=== PATIENT | female | born 1970 | race Caucasian/White ===

== ENCOUNTER 2023-03-06 11:41 | Day surgery (SDC) | payer OTHER, SELFPAY ==
[2023-03-06] VITALS (12 sets, daily range): BP systolic 113–166; BP diastolic 76–99; PULSE 54–88; RESP 12–23; TEMP 36.3–36.5; O2SAT 97–100; BMI 27.3
[2023-03-06 12:20] LABS: HCG Qualitative NEGATIVE (NEGATIVE)
[2023-03-06] MEDS: LACTATED RINGER'S SOLUTION 1,000 ML 50 ML IV ×2 (13:15→17:14)
--- NOTE | 2023-03-06 13:19 | ECG_ITS ---
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
[2023-03-06] MEDS: CEFAZOLIN SODIUM/DEXTROSE,ISO 2 GM/50 ML PIGGYBACK IV (15:32)
[2023-03-06] MEDS: IOHEXOL 240 MG/ML - 10 ML VIAL INJ (16:30)
--- NOTE | 2023-03-06 17:27 | P.URON_ITS ---
Urology Surgery Operative Note Operative Note Procedure Date: 03/06/23 Time Out Performed: yes Pre-op Diagnosis: 1. Left kidney stone 2. Renal colic Post-op Diagnosis: same as pre-op Procedures performed: Cystoscopy, left retrograde pyelogram, ureteroscopy with laser lithotripsy/stone extraction, stent placement Anesthesia: General-LMA (Dr. Hitchcock) Primary Surgeon: Lisa Corrales Complications: none Estimated blood loss (mL): 0 Findings: Radiopaque BL large renal stones, R>L L RPG- filling defect in renal pelvis consistent with known stone. No hydronephrosis, extravasation or other filling defects Large 1.6 cm left renal pelvis stone underwent uncomplicated laser lithotripsy and stone extraction. Remainder of small fragments unable to be basket extracted were dusted. Specimens: left kidney stone Drains: 4.9Fr x 22-32 cm JJ left ureteral stent Incision: none Indications for Procedures: 52 year old female recently diagnosed with large BL stone burden and left flank pain who was found to have a 1.6 x 1.1 cm left renal pelvis stone. Due to uncontrolled symptoms including renal colic, she elected to proceed with c ystoscopy, left retrograde pyelogram, ureteroscopy with laser lithotripsy/stone extraction, ureteral stent placement under general anesthesia. She is awaiting right PCNL at tertiary center. Risks were discussed including but not limited to bleeding, pain, infection, damage to surrounding structures, inability to treat the stone/place a stent, and need for additional procedures. The patient underst ands the stent is not permanent and needs to be removed or exchanged within 3 months to prevent encrustation, infection, invasive procedures and/or permanent renal damage. Detailed description of Procedure: After informed consent was obtained, the patient was brought to the operating room and transferred onto the operating table in supine position. Sequential compression devices were placed on bilateral lower extremities. The patient received the appropriate dose of preoperative IV antibiotics and general anesthesia LMA was induced. They were positioned in modified dorsolithotomy with the appropriate pressure points padded, prepped, and draped in the usual sterile fashion for this procedure. An operative safety timeout was performed confirming the patient's identity, laterality and procedure, and all present agreed to proceed. I began by inserting a 22 [place] rigid cystoscope with 30 degree lens into the patient's urethra and bladder without difficulty. There were no bladder tumors, lesions, stones or foreign bodies. Bilateral ureteral orifices were orthotopic and patent. I turned my attention to the left ureteral orifice and a 6- [place] open-ended catheter was inserted into the ureteral orifice and dilute contrast was injected for retrograde pyelogram with findings as above. A Sensor wire was inserted into the ureter up to the renal pelvis confirmed on fluoroscopy. An 11/13 [place]e by 36 cm ureteral access sheath was inserted over the wire in a sequential fashion to gain access to the renal pelvis. Next a flexible ureteros cope was inserted through the sheath and advanced to the renal pelvis under fluoroscopic guidance until the stone was reached. A 400 ?m Thulium YAG laser fiber was used to break the stone into fragments which were then removed with a 1.8 tipless nitinol basket. The remainder of the small fragments/crystals unable to be basket extracted were dusted. After the stone was adequately treated, a full renoscopy was performed confirming no significant residual stones or fragments remained. Contrast was injected to assist with mapping for the renoscopy. The wire was reinserted and a pull down ureteroscopy was performed confirming no stones remained in the ureter or extravasation of contrast. The wire was backloaded through the cystoscope and 4.9Fr x 22-32 cm JJ variable length ureteral stent was advanced over the wire, noting adequate curl in the renal pelvis and bladder on fluoroscopic and direct visualization. The bladder was drained and inspected one final time to ensure adequate position of stent and no undue trauma to the bladder was done. The stones were sent for pathology and the cystoscope was removed. The patient tolerated the procedure well without complication. The patient was awakened from anesthesia and sent to PACU in stable condition. Plan: Discharge home with stent pain medications. Follow up in 1 week for in- office cystoscopy, stent removal. Other Provider present: No Post Operative care instructions: See discharge instructions Attending Doc Confirm Attending Attestation: Yes
[2023-03-06] MEDS: METOCLOPRAMIDE HCL 10 MG/2 ML VIAL IVP (18:05)
[2023-03-15 15:10] LABS: Calcium Oxalate Dihydrate 90 % (.); Calcium Oxalate Monohydrate 10 % (.); Size 4x3 mm (.)
== END 2023-03-06 19:00 | disposition home or self-care (01) ==
PROVIDERS: Visit Provider Urology
PROC: (CPT 918; principal; 2023-03-06 13:45)
DX: N20.0 Calculus of kidney (principal); Z87.440 Personal history of urinary (tract) infections; R35.0 Frequency of micturition; R35.1 Nocturia
CPT/HCPCS: 52356; 36415; 74420; 82365; 84703; 93005; 99999; J0131; J0690; J1100; J2405; J2704; J2765; J3010; Q9966